=== PATIENT | male | born 1990 | race Caucasian/White ===

== ENCOUNTER 2017-06-11 12:35 | Emergency (ER) | payer OTHER ==
[~2017-06-11] VITALS: Ht 172.7 cm; Wt 65.8 kg
[~2017-06-11 12:35] MED LIST: ADDERALL20 MG; ADDERALL30 MG PO; AMOXICILLIN500 M2 PO; AMOXIL500 MG PO; ANAPROX DS550 MG PO; ANTIVERT/2525 MG PO; AUGMENTIN 875875 MG PO; Amphetamine Sal20 MG PO; BACTRIM DS 8001 TA1 PO; BENTYL10 MG PO; BRIN20TA PO; CATAFLAM50 MG PO; CIPRO500 MG PO; CLARITIN-D 12 H1 TAB PO; CLARITIN10 MG PO; CLINDAMYCIN HC300 MG PO; CLINDAMYCIN150 MG PO; COMPAZINE10 MG PO; DAYPRO600 M1 PO; FLEXERIL10 MG PO; FLEXERIL5 MG PO; IBU-8800 MG PO; KEFLEX500 MG PO; LATU60TA PO; LOMOTIL 0.025 M1 TA1 PO; LOMOTIL 0.025 M1 TAB PO; MEDROL DOSEPAK4 MG PO; MOTRIN600 MG PO; MOTRIN800 MG PO; Motrin,Rufen800 MG PO; NAPROSYN500 MG PO; NKHM; PEN-VEE K500 MG PO; PERCOCET 325 MG1 TA6 PO; PHENERGAN25 MG RC; ROBITUSSIN DM 105 ML PO; SOMA250 MG PO; TRAMADOL HCL50 MG PO; TRIMOX500 MG PO; ULTRAM50 MG PO; VERMOX100 MG PO; VICODIN ES 7501 TAB PO; ZITHROMAX TRI-500 MG PO; ZITHROMAX Z PA250 MG PO; ZITHROMAX250 MG PO; ZOFRAN ODT4 MG SL; ZYRTEC10 MG PO
[2017-06-11 13:28] LABS: BASO # 0.1 10*3/uL (0.0-0.1); BASO % 0.8 % (0.0-1.0); EOS # 0.1 10*3/uL (0.0-0.4); EOS % 0.9 % (1.0-4.0); HEMATOCRIT 42.6 % (42.0-52.0); HEMOGLOBIN 14.8 g/dl (14.0-18.0); LYMPH # 1.5 10*3/uL (1.3-4.4); LYMPH % 23.4 % (27.0-41.0); MEAN CELL VOLUME 89.7 fl (80.0-94.0); MEAN CORPUSCULAR HGB 31.2 pg (27.0-31.0); MEAN CORPUSCULAR HGB CONC 34.7 g/dl (33.0-37.0); MEAN PLATELET VOLUME 9.3 fl (9.6-12.3); MONO # 0.3 10*3/uL (0.1-1.0); MONO % 5.2 % (3.0-9.0); NEUT # 4.5 10*3/uL (2.3-7.9); NEUT % 69.5 % (47.0-73.0); PLATELET COUNT AUTOMATED 157 10*3/uL (130-400); RED BLOOD COUNT 4.75 10*6/uL (4.50-5.90); RED CELL DISTRI WIDTH 12.2 % (0-14.5); WHITE BLOOD COUNT 6.5 10*3/uL (4.8-10.8)
[2017-06-11 13:45] LABS: ALBUMIN 3.9 gm/dl (3.1-4.5); ALKALINE PHOSPHATASE 79 U/L (45-117); BILIRUBIN, TOTAL 0.4 mg/dl (0.2-1.0); BUN 12 mg/dl (7-24); CARBON DIOXIDE 30 mmol/L (21-32); CHLORIDE 107 mmol/L (98-107); EST GLOM FILT AFRICAN AMERICAN > 60 ml/min; GLUCOSE 76 mg/dL (65-99); POTASSIUM 3.8 mmol/L (3.5-5.1); SGOT/AST 19 IU/L (3-35); SGPT/ALT 23 U/L (12-78); SODIUM 141 mmol/L (136-145); TOTAL PROTEIN 6.8 gm/dL (6.4-8.2)
[2017-06-11 13:53] LABS: THYROID STIM HORMONE (HS) 0.579 uIU/ml (0.358-4.75)
[2017-06-11 14:13] LABS: BILIRUBIN NEGATIVE (NEGATIVE); BLOOD NEGATIVE (NEGATIVE); CLARITY CLEAR (CLEAR); COLOR YELLOW (YELLOW); GLUCOSE NEGATIVE (NEGATIVE); KETONE NEGATIVE (NEGATIVE); LEUKO ESTERASE NEGATIVE (NEGATIVE); NITRITE NEGATIVE (NEGATIVE); PH 7.5 (5.0-9.0); PROTEIN NEGATIVE (NEGATIVE); UROBILINOGEN 0.2 E.U./dl (0.2-1.0)
[2017-06-11 14:19] LABS: URINE AMPHETAMINES < 1000 (1000ng/ml); URINE BARBITURATES < 200 (200ng/ml); URINE COCAINE < 300 (300ng/ml)
[2017-06-11 14:45] LABS: BACTERIA TRACE; URINE REFLEX COMMENT NO (NO)
[2017-06-11] MEDS ORDERED: ZOLOFT50 MG PO (17:07)
== END 2017-06-11 16:55 | disposition home or self-care (01) ==
LOC: ED 12:35
PROVIDERS: Emergency Medicine
DX: F32.9 Major depressive disorder, single episode, unspecified (principal); R45.851 Suicidal ideations; F17.210 Nicotine dependence, cigarettes, uncomplicated; Z88.4 Allergy status to anesthetic agent

== ENCOUNTER 2017-12-06 23:11 | Emergency (ER) | payer OTHER ==
[~2017-12-06] VITALS: Ht 172.7 cm; Wt 79.4 kg
[~2017-12-06 23:11] MED LIST changes: +ZOLOFT50 MG PO
[2017-12-07 00:21] LABS: ALBUMIN 3.8 gm/dl (3.1-4.5); ALKALINE PHOSPHATASE 93 U/L (45-117); BUN 7 mg/dl (7-24); CHLORIDE 107 mmol/L (98-107); CREATININE 0.94 mg/dL (0.70-1.30); POTASSIUM 3.1 mmol/L (3.5-5.1); SGOT/AST 20 IU/L (3-35); SGPT/ALT 25 U/L (12-78); SODIUM 140 mmol/L (136-145); TOTAL PROTEIN 6.7 gm/dL (6.4-8.2)
[2017-12-07 00:23] LABS: BASO % 0.4 % (0.0-1.0); EOS % 0.3 % (1.0-4.0); HEMATOCRIT 38.4 % (42.0-52.0); HEMOGLOBIN 13.6 g/dl (14.0-18.0); LYMPH # 1.4 10*3/uL (1.3-4.4); LYMPH % 13.1 % (27.0-41.0); MEAN CELL VOLUME 87.9 fl (80.0-94.0); MEAN CORPUSCULAR HGB 31.1 pg (27.0-31.0); MEAN CORPUSCULAR HGB CONC 35.4 g/dl (33.0-37.0); MEAN PLATELET VOLUME 10.2 fl (9.6-12.3); MONO # 0.7 10*3/uL (0.1-1.0); MONO % 6.1 % (3.0-9.0); NEUT # 8.8 10*3/uL (2.3-7.9); NEUT % 79.8 % (47.0-73.0); PLATELET COUNT AUTOMATED 169 10*3/uL (130-400); RED BLOOD COUNT 4.37 10*6/uL (4.50-5.90); RED CELL DISTRI WIDTH 12.4 % (0-14.5)
[2017-12-07] MEDS ORDERED: CLINDAMYCIN HC300 MG PO (00:34)
[2017-12-07] MEDS ORDERED: NORCO 5-325 TA1 EACH PO (00:34)
== END 2017-12-07 00:46 | disposition home or self-care (01) ==
LOC: ED 23:11
PROVIDERS: Physician Assistant
DX: K04.7 Periapical abscess without sinus (principal); F17.200 Nicotine dependence, unspecified, uncomplicated; Z88.1 Allergy status to other antibiotic agents

== ENCOUNTER 2018-07-13 18:11 | Emergency (ER) | payer OTHER ==
[~2018-07-13] VITALS: Wt 81.6 kg
[~2018-07-13 18:11] MED LIST changes: +NORCO 5-325 TA1 EACH PO
[2018-07-13] MEDS ORDERED: Peridex 473 ML473 ML PO (18:22)
[2018-07-13] MEDS ORDERED: PENICILLIN VK500 MG PO (18:22)
[2018-07-13] MEDS ORDERED: NAPROSYN500 MG PO (18:22)
== END 2018-07-13 18:37 | disposition home or self-care (01) ==
LOC: ED 18:11
DX: K02.9 Dental caries, unspecified (principal); R03.0 Elevated blood-pressure reading, without diagnosis of hypertension; Z88.4 Allergy status to anesthetic agent

== ENCOUNTER 2019-09-01 08:33 | Emergency (ER) | payer OTHER ==
[~2019-09-01] VITALS: Ht 175.2 cm; Wt 77.1 kg
[~2019-09-01 08:33] MED LIST changes: +PENICILLIN VK500 MG PO; +Peridex 473 ML473 ML PO
== END 2019-09-01 11:08 | disposition home or self-care (01) ==
LOC: ED 08:33
DX: G89.29 Other chronic pain (principal); M25.562 Pain in left knee; F17.200 Nicotine dependence, unspecified, uncomplicated; Z88.4 Allergy status to anesthetic agent; Z79.2 Long term (current) use of antibiotics; Z79.899 Other long term (current) drug therapy

== ENCOUNTER 2020-06-14 07:45 | Emergency (ER) | payer OTHER ==
[~2020-06-14] VITALS: Ht 175.2 cm; Wt 68.0 kg
[2020-06-14 08:44] LABS: BASO # 0.1 10*3/uL (0.0-0.1); BASO % 0.9 % (0.0-1.0); EOS # 0.1 10*3/uL (0.0-0.4); EOS % 1.6 % (1.0-4.0); HEMATOCRIT 44.4 % (42.0-52.0); LYMPH # 1.5 10*3/uL (1.3-4.4); MEAN CELL VOLUME 91.5 fl (80.0-94.0); MEAN CORPUSCULAR HGB 31.1 pg (27.0-31.0); MEAN PLATELET VOLUME 9.6 fl (9.6-12.3); MONO # 0.3 10*3/uL (0.1-1.0); MONO % 5.8 % (3.0-9.0); NEUT # 3.7 10*3/uL (2.3-7.9); NEUT % 64.3 % (47.0-73.0); PLATELET COUNT AUTOMATED 199 10*3/uL (130-400); RED BLOOD COUNT 4.85 10*6/uL (4.50-5.90); RED CELL DISTRI WIDTH 12.6 % (0-14.5); WHITE BLOOD COUNT 5.7 10*3/uL (4.8-10.8)
[2020-06-14 08:54] LABS: ACT PARTIAL THROMBO TIME 27.2 SECONDS (20.0-32.1); INTERNATIONAL NORM RATIO 0.9 (2.0-3.5)
[2020-06-14 08:59] LABS: ALBUMIN 3.6 gm/dl (3.1-4.5); ALKALINE PHOSPHATASE 86 U/L (45-117); BUN 13 mg/dl (7-24); CHLORIDE 109 mmol/L (98-107); LIPASE 107 U/L (73-393); POTASSIUM 3.8 mmol/L (3.5-5.1); SGOT/AST 11 IU/L (3-35); SGPT/ALT 21 U/L (12-78); SODIUM 136 mmol/L (136-145); TOTAL PROTEIN 6.6 gm/dL (6.4-8.2)
[2020-06-14 09:12] LABS: BETA-HCG, QUANT < 1.0 mIU/mL (<1); TROPONIN I < 0.015 ng/ml (<0.045)
[2020-06-14] MEDS ORDERED: PREDNISONE50 MG PO (12:25)
[2020-06-14] MEDS ORDERED: ZITHROMAX250 MG PO (12:25)
== END 2020-06-14 12:48 | disposition home or self-care (01) ==
LOC: ED 07:45
PROVIDERS: Emergency Medicine
DX: J20.9 Acute bronchitis, unspecified (principal); F41.9 Anxiety disorder, unspecified; F17.200 Nicotine dependence, unspecified, uncomplicated; Z88.8 Allergy status to other drugs, medicaments and biological substances; Z79.899 Other long term (current) drug therapy; Z79.2 Long term (current) use of antibiotics; Z20.828 Contact with and (suspected) exposure to other viral communicable diseases

== ENCOUNTER 2021-11-14 11:28 | Emergency (ER) | payer OTHER ==
[~2021-11-14] VITALS: Ht 177.8 cm; Wt 77.1 kg
[~2021-11-14 11:28] MED LIST changes: +PREDNISONE50 MG PO
== END 2021-11-14 14:25 | disposition left against medical advice (07) ==
LOC: ED 11:28
DX: R50.9 Fever, unspecified (principal); Z53.21 Procedure and treatment not carried out due to patient leaving prior to being seen by health care provider

== ENCOUNTER 2021-11-15 04:01 | Emergency (ER) | payer OTHER ==
[~2021-11-15] VITALS: Ht 177.8 cm; Wt 77.1 kg
[2021-11-15 04:33] LABS: BASO % 0.7 % (0.0-1.0); EOS # 0.1 10*3/uL (0.0-0.4); HEMATOCRIT 42.7 % (42.0-52.0); LYMPH # 1.4 10*3/uL (1.3-4.4); LYMPH % 24.6 % (27.0-41.0); MEAN CELL VOLUME 89.1 fl (80.0-94.0); MEAN CORPUSCULAR HGB 31.5 pg (27.0-31.0); MEAN CORPUSCULAR HGB CONC 35.4 g/dl (33.0-37.0); MEAN PLATELET VOLUME 9.4 fl (9.6-12.3); MONO # 0.5 10*3/uL (0.1-1.0); NEUT # 3.7 10*3/uL (2.3-7.9); NEUT % 64.5 % (47.0-73.0); PLATELET COUNT AUTOMATED 180 10*3/uL (130-400); RED BLOOD COUNT 4.79 10*6/uL (4.50-5.90); RED CELL DISTRI WIDTH 12.1 % (0-14.5); WHITE BLOOD COUNT 5.8 10*3/uL (4.8-10.8)
[2021-11-15 04:55] LABS: ALBUMIN 3.8 gm/dl (3.1-4.5); ALKALINE PHOSPHATASE 95 U/L (45-117); BUN 21 mg/dl (7-24); CHLORIDE 105 mmol/L (98-107); CREATININE 0.97 mg/dL (0.70-1.30); POTASSIUM 3.7 mmol/L (3.5-5.1); SGOT/AST 20 IU/L (3-35); SGPT/ALT 26 U/L (12-78); SODIUM 138 mmol/L (136-145); TOTAL PROTEIN 7.3 gm/dL (6.4-8.2)
== END 2021-11-15 05:36 | disposition home or self-care (01) ==
LOC: ED 04:01
PROVIDERS: Internal Medicine
DX: U07.1 COVID-19 (principal); B34.9 Viral infection, unspecified; Z88.4 Allergy status to anesthetic agent

== ENCOUNTER 2022-01-03 16:22 | Emergency (ER) | payer OTHER ==
[~2022-01-03] VITALS: Wt 81.6 kg
[2022-01-03] MEDS ORDERED: PREDNISONE10 MG PO (17:03)
== END 2022-01-03 17:13 | disposition home or self-care (01) ==
LOC: ED 16:22
DX: L23.9 Allergic contact dermatitis, unspecified cause (principal)

== ENCOUNTER 2023-09-04 02:32 | Emergency (ER) | payer OTHER ==
[~2023-09-04] VITALS: Ht 177.8 cm; Wt 69.9 kg
[~2023-09-04 02:32] MED LIST changes: +PREDNISONE10 MG PO
[2023-09-04 03:08] LABS: BASO # 0.1 10*3/uL (0.0-0.1); BASO % 0.6 % (0.0-1.0); EOS # 0.2 10*3/uL (0.0-0.4); HEMATOCRIT 41.7 % (42.0-52.0); LYMPH # 1.7 10*3/uL (1.3-4.4); LYMPH % 18.4 % (27.0-41.0); MEAN CELL VOLUME 90.7 fl (80.0-94.0); MEAN CORPUSCULAR HGB 31.5 pg (27.0-31.0); MEAN CORPUSCULAR HGB CONC 34.8 g/dl (33.0-37.0); MEAN PLATELET VOLUME 9.3 fl (9.6-12.3); MONO # 0.6 10*3/uL (0.1-1.0); MONO % 6.8 % (3.0-9.0); NEUT # 6.7 10*3/uL (2.3-7.9); PLATELET COUNT AUTOMATED 159 10*3/uL (130-400); RED CELL DISTRI WIDTH 12.5 % (0-14.5); WHITE BLOOD COUNT 9.3 10*3/uL (4.8-10.8)
[2023-09-04 03:19] LABS: ACT PARTIAL THROMBO TIME 29.6 SECONDS (20.0-32.1)
[2023-09-04 03:30] LABS: ALKALINE PHOSPHATASE 76 U/L (46-116); BUN 16 mg/dl (9-23); CHLORIDE 108 mmol/L (98-107); LIPASE 37 U/L (12-53); POTASSIUM 3.8 mmol/L (3.4-5.1); SGPT/ALT 27 U/L (5-49); TOTAL PROTEIN 6.2 gm/dL (6.0-8.0)
[2023-09-04] MEDS ORDERED: PREDNISONE20 M1 PO (05:48)
[2023-09-04] MEDS ORDERED: AMOX-CLAV 875-1 EACH PO (05:48)
== END 2023-09-04 05:53 | disposition home or self-care (01) ==
LOC: ED 02:32
PROVIDERS: Internal Medicine
DX: J44.1 Chronic obstructive pulmonary disease with (acute) exacerbation (principal); K08.89 Other specified disorders of teeth and supporting structures; F41.9 Anxiety disorder, unspecified; F90.9 Attention-deficit hyperactivity disorder, unspecified type; Z88.8 Allergy status to other drugs, medicaments and biological substances; Z98.890 Other specified postprocedural states; Z87.891 Personal history of nicotine dependence

== ENCOUNTER 2024-01-26 10:27 | Emergency (ER) | payer OTHER ==
[~2024-01-26] VITALS: Ht 165.1 cm; Wt 68.0 kg
[~2024-01-26 10:27] MED LIST changes: +AMOX-CLAV 875-1 EACH PO; +PREDNISONE20 M1 PO
[2024-01-26] MEDS ORDERED: Tdap Vaccine 0.5 ML SYR (Adult Vaccine) IM ONE (10:40)
[2024-01-26] MEDS ORDERED: IBUPROFEN 800 MG TAB PO ONE (10:40)
[2024-01-26] MEDS ORDERED: IBU800 M2 PO (13:57)
== END 2024-01-26 14:04 | disposition home or self-care (01) ==
LOC: ED 10:27
DX: S01.81XA Laceration without foreign body of other part of head, initial encounter (principal); Z88.4 Allergy status to anesthetic agent; Y04.2XXA Assault by strike against or bumped into by another person, initial encounter; Y93.89 Activity, other specified; Y92.89 Other specified places as the place of occurrence of the external cause; Y99.8 Other external cause status

== ENCOUNTER 2025-03-31 17:38 | Emergency (ER) | payer OTHER ==
[~2025-03-31] VITALS: Ht 175.2 cm; Wt 74.8 kg
[~2025-03-31 17:38] MED LIST changes: +IBU800 M2 PO
[2025-03-31] MEDS ORDERED: NAPROXEN250 MG PO (19:54)
== END 2025-03-31 19:54 | disposition home or self-care (01) ==
LOC: ED 17:38
DX: S40.011A Contusion of right shoulder, initial encounter (principal); Z88.4 Allergy status to anesthetic agent; W22.8XXA Striking against or struck by other objects, initial encounter; Y93.02 Activity, running; Y92.89 Other specified places as the place of occurrence of the external cause; Y99.8 Other external cause status

== ENCOUNTER 2025-08-10 15:17 | Emergency (ER) | payer BC, OTHER ==
[~2025-08-10] VITALS: Ht 177.8 cm; Wt 72.6 kg
[~2025-08-10 15:17] MED LIST changes: +NAPROXEN250 MG PO
[2025-08-10] MEDS ORDERED: PREDNISONE20 M1 PO (17:04)
[2025-08-10] MEDS ORDERED: AVPAK AZITHROM250 M1 PO (17:04)
[2025-08-10] MEDS ORDERED: AZITHROMYCIN 250 MG TAB PO ONE (17:05)
[2025-08-10] MEDS ORDERED: Water, Sterile 10 ML VIAL ONE (17:34)
== END 2025-08-10 17:08 | disposition home or self-care (01) ==
LOC: ED 15:17
DX: J40 Bronchitis, not specified as acute or chronic (principal); F32.9 Major depressive disorder, single episode, unspecified; F41.9 Anxiety disorder, unspecified; F90.9 Attention-deficit hyperactivity disorder, unspecified type; Z88.8 Allergy status to other drugs, medicaments and biological substances